=== PATIENT | female | born 1970 | race Two or more races ===

== ENCOUNTER → 2017-03-20 | Outpatient (CLI) | payer MEDICARE ==
[~2017-03-20] MED LIST: GADOBUTROL 7.5 MMOL/7.5 ML VIAL ONE
== END | disposition home or self-care (01) ==
LOC: CFH 08:00
PROVIDERS: ATTEND Psychiatry & Neurology Neurology
DX: G93.89 Other specified disorders of brain (principal); R90.82 White matter disease, unspecified; G35 Multiple sclerosis; J32.0 Chronic maxillary sinusitis
CPT/HCPCS: 70553; A9585

== ENCOUNTER 2019-05-13 09:23 | Outpatient (CLI) | payer MEDICARE ==
[~2019-05-13] VITALS: Ht 152.4 cm; Wt 46.4 kg
== END 2019-05-13 23:59 | disposition home or self-care (01) ==
LOC: INFUSION 09:23
PROVIDERS: ATTEND Psychiatry & Neurology Neurology
DX: G35 Multiple sclerosis (principal); Z86.69 Personal history of other diseases of the nervous system and sense organs
CPT/HCPCS: 96365; 96366; 96375; J1200; J2350; J2930; J7040

== ENCOUNTER 2020-02-09 11:22 | Emergency (ER) | payer MEDICARE ==
[~2020-02-09] VITALS: Ht 152.4 cm; Wt 48.0 kg
[~2020-02-09 11:22] MED LIST changes: +AMAN100C7 PO; +CHOL2000 PO; -GADOBUTROL 7.5 MMOL/7.5 ML VIAL ONE; +TERI14TA PO
[2020-02-09 11:26] VITALS: BP 97/50
--- NOTE | 2020-02-09 11:54 | NUR ---
david stern spoke with dr johnson
--- NOTE | 2020-02-09 12:20 | NUR ---
JAZLYN RN: Patient/Caregiver given discharge instructions and they have confirmed that they understand the instructions. Patient ambulatory with steady gait.
== END 2020-02-09 12:22 | disposition home or self-care (01) ==
LOC: ED 12:16
DX: B02.9 Zoster without complications (principal)
CPT/HCPCS: 99283